=== PATIENT | female | born 1965 | race Caucasian/White ===

== ENCOUNTER 2017-04-30 07:32 | Inpatient (IN) | payer BC ==
[2017-04-30] VITALS (10 sets, daily range): BP systolic 93–131; BP diastolic 54–73
[~2017-04-30] VITALS: Ht 157.5 cm; Wt 80.5 kg
[~2017-04-30 07:32] MED LIST: AMITIZA24 MC1 PO; ATIVAN0.5 M1; DILAUDID2 MG; LAC PO; LEVAQUIN750 MG PO; MAC100 PO; PHEDML PO; RELISTOR150 MG PO; TYLENOL EXTRA500 M2; TYLENOL EXTRA500 M3; ZOF4
[2017-04-30 08:50] LABS: PLATELET COUNT 224 x10^3mcL (130-400)
[2017-04-30 08:55] LABS: CALCIUM 7.6 mg/dL (8.5-10.1); CARBON DIOXIDE 27.6 mmol/L (21-32); CHLORIDE SERUM 108 mmol/L (98-107); CREATININE SERUM 0.7 mg/dL (0.6-1.0); GFR1 > 60 mL/min; GLUCOSE SERUM 168 mg/dL (74-106); POTASSIUM SERUM 5.2 mmol/L (3.5-5.1); SODIUM SERUM 139 mmol/L (136-145)
[2017-04-30 09:07] LABS: ALKALINE PHOSPHATASE 285 U/L (46-116); ALT/SGPT 34 U/L (14-59); AMYLASE 48 U/L (25-115); AST/SGOT 60 U/L (15-37); BILIRUBIN TOTAL 0.5 mg/dL (0.20-1.00); LIPASE 164 IU/L (73-393); MAGNESIUM 2.1 mg/dL (1.8-2.4)
[2017-04-30 09:11] LABS: AMPHETAMINE QUAL UR NONE DETECTED (NEG <=1000)
[2017-04-30 09:12] LABS: ALBUMIN 1.6 g/dL (3.4-5.0); CHOLESTEROL 96 mg/dL (<200); HDL CHOLESTEROL 17 mg/dL (40-60); T4(THYROXINE) 3.2 ug/dL (4.7-13.3); TOTAL PROTEIN, SERUM 5.9 g/dL (6.4-8.2)
[2017-04-30 09:28] LABS: RED CELL DISTRIBUTION WIDTH 18.5 % (11.5-14.5)
[2017-04-30 09:32] LABS: UA SPECIFIC GRAVITY >=1.030 (1.005-1.035); microscopic required? YES; urine erythrocyte TRACE (NEGATIVE)
[2017-04-30 10:13] LABS: ATYPICAL LYMPH 1 %; BAND NEUTROPHIL 8 % (0-10); BASOPHIL 0 % (0-2); MONOCYTE 29 % (0-7); SEGMENTED NEUTROPHILS 42 % (37-75); rbc morphology (normal/abnorm) ABNORMAL (NORMAL)
[2017-04-30] MEDS ORDERED: COMPAZINE5 M1 PO (10:28)
[2017-04-30] MEDS ORDERED: ZOF4 PO (10:28)
[2017-04-30] MEDS ORDERED: LORAZEPAM0.5 MG PO (10:28)
[2017-04-30] MEDS ORDERED: GOOD SENSE OMEP20 MG PO (10:28)
[2017-04-30 12:24] LABS: FREE T4 0.72 ng/dL (0.76-1.46)
[2017-04-30 12:25] LABS: FREE THYROXINE INDEX 1.4 ug/dL (1.4-4.5); T4(THYROXINE) 3.5 ug/dL (4.7-13.3)
[2017-04-30 12:50] LABS: T3 TOTAL 0.21 ng/mL
[2017-05-01] VITALS (18 sets, daily range): BP systolic 91–119; BP diastolic 39–72
[2017-05-01 05:09] LABS: PLATELET COUNT 190 x10^3mcL (130-400)
[2017-05-01 05:14] LABS: BASOPHIL % 0 % (0-2); RED CELL DISTRIBUTION WIDTH 19.1 % (11.5-14.5)
[2017-05-01 05:34] LABS: CALCIUM 7.7 mg/dL (8.5-10.1); CARBON DIOXIDE 27.5 mmol/L (21-32); CHLORIDE SERUM 108 mmol/L (98-107); CREATININE SERUM 0.8 mg/dL (0.6-1.0); GFR1 > 60 mL/min; GLUCOSE SERUM 82 mg/dL (74-106); MAGNESIUM 1.8 mg/dL (1.8-2.4); PHOSPHOROUS 3.6 mg/dL (2.5-4.9); SODIUM SERUM 141 mmol/L (136-145)
[2017-05-02] VITALS (19 sets, daily range): BP systolic 80–146; BP diastolic 38–80
[2017-05-02 05:53] LABS: BASOPHIL % 0.2 % (0-2); PLATELET COUNT 214 x10^3mcL (130-400); RED CELL DISTRIBUTION WIDTH 19.3 % (11.5-14.5)
[2017-05-02 06:07] LABS: CALCIUM 7.3 mg/dL (8.5-10.1); CARBON DIOXIDE 25.4 mmol/L (21-32); CHLORIDE SERUM 107 mmol/L (98-107); CREATININE SERUM 0.8 mg/dL (0.6-1.0); GFR1 > 60 mL/min; GLUCOSE SERUM 94 mg/dL (74-106); MAGNESIUM 1.6 mg/dL (1.8-2.4); PHOSPHOROUS 3.8 mg/dL (2.5-4.9); POTASSIUM SERUM 4.1 mmol/L (3.5-5.1); SODIUM SERUM 141 mmol/L (136-145)
[2017-05-03] VITALS (18 sets, daily range): BP systolic 88–125; BP diastolic 54–68
[2017-05-03 05:34] LABS: BASOPHIL % 0.1 % (0-2); PLATELET COUNT 212 x10^3mcL (130-400)
[2017-05-03 05:37] LABS: RED CELL DISTRIBUTION WIDTH 19.3 % (11.5-14.5)
[2017-05-03 05:46] LABS: CALCIUM 7.6 mg/dL (8.5-10.1); CARBON DIOXIDE 23.9 mmol/L (21-32); CHLORIDE SERUM 105 mmol/L (98-107); CREATININE SERUM 0.7 mg/dL (0.6-1.0); GFR1 > 60 mL/min; GLUCOSE SERUM 174 mg/dL (74-106); MAGNESIUM 1.9 mg/dL (1.8-2.4); PHOSPHOROUS 3.9 mg/dL (2.5-4.9); POTASSIUM SERUM 3.3 mmol/L (3.5-5.1); SODIUM SERUM 140 mmol/L (136-145)
[2017-05-04] VITALS (17 sets, daily range): BP systolic 76–140; BP diastolic 49–71
[2017-05-04 05:37] LABS: BASOPHIL % 0.1 % (0-2)
[2017-05-04 06:02] LABS: CALCIUM 7.1 mg/dL (8.5-10.1); CARBON DIOXIDE 25.7 mmol/L (21-32); CHLORIDE SERUM 104 mmol/L (98-107); CREATININE SERUM 0.9 mg/dL (0.6-1.0); GFR1 > 60 mL/min; GLUCOSE SERUM 178 mg/dL (74-106); MAGNESIUM 1.7 mg/dL (1.8-2.4); PHOSPHOROUS 4.1 mg/dL (2.5-4.9); POTASSIUM SERUM 3.2 mmol/L (3.5-5.1); SODIUM SERUM 141 mmol/L (136-145)
[2017-05-04 06:16] LABS: RED CELL DISTRIBUTION WIDTH 18.9 % (11.5-14.5)
[2017-05-04 06:17] LABS: PLATELET COUNT 207 x10^3mcL (130-400)
[2017-05-05] VITALS (19 sets, daily range): BP systolic 84–125; BP diastolic 47–77; Ht 157.5 cm; Wt 80.5 kg
[2017-05-05 05:24] LABS: BASOPHIL % 0.4 % (0-2)
[2017-05-05 05:46] LABS: CALCIUM 7.3 mg/dL (8.5-10.1); CARBON DIOXIDE 27.2 mmol/L (21-32); CREATININE SERUM 1.1 mg/dL (0.6-1.0); MAGNESIUM 1.7 mg/dL (1.8-2.4); PHOSPHOROUS 3.7 mg/dL (2.5-4.9)
[2017-05-05 06:03] LABS: RED CELL DISTRIBUTION WIDTH 19.8 % (11.5-14.5)
[2017-05-05 06:04] LABS: PLATELET COUNT 215 x10^3mcL (130-400)
[2017-05-05 17:57] LABS: APPEARANCE FLUID HAZY; SOURCE FLUID THORACENTESIS
[2017-05-05 17:58] LABS: COLOR FLUID YELLOW
[2017-05-05 17:59] LABS: RBC FLUID 1257 /cumm; WBC FLUID 421 /cumm
[2017-05-05 18:24] LABS: LYMPHOCYTE FLUID 57 %; MONOCYTE FLUID 9 %
[2017-05-06] VITALS (13 sets, daily range): BP systolic 91–117; BP diastolic 52–67
[2017-05-06 05:12] LABS: BASOPHIL % 0.5 % (0-2); PLATELET COUNT 211 x10^3mcL (130-400)
[2017-05-06 05:36] LABS: CALCIUM 7.5 mg/dL (8.5-10.1); CARBON DIOXIDE 27.1 mmol/L (21-32); CHLORIDE SERUM 104 mmol/L (98-107); GFR1 > 60 mL/min; GLUCOSE SERUM 159 mg/dL (74-106); MAGNESIUM 1.5 mg/dL (1.8-2.4); PHOSPHOROUS 3.5 mg/dL (2.5-4.9); SODIUM SERUM 139 mmol/L (136-145)
[2017-05-06 05:38] LABS: RED CELL DISTRIBUTION WIDTH 19.7 % (11.5-14.5)
[2017-05-06 05:56] LABS: rbc morphology (normal/abnorm) ABNORMAL (NORMAL)
[2017-05-06] MEDS ORDERED: PHE25I IV (16:10)
[2017-05-06] MEDS ORDERED: BEN25I IV (16:10)
[2017-05-06] MEDS ORDERED: ZOS2PM IV ×2 (16:11→16:43)
[2017-05-06] MEDS ORDERED: XOP1.25 HHN (16:12)
[2017-05-06] MEDS ORDERED: IPRATROPIUM BROM3 M2 HHN (16:12)
[2017-05-06] MEDS ORDERED: XARELTO15 M1 PO (16:13)
[2017-05-06] MEDS ORDERED: TYL650L PO (16:14)
[2017-05-06] MEDS ORDERED: DEXPF IV (16:14)
[2017-05-06] MEDS ORDERED: BG FS (16:14)
[2017-05-06] MEDS ORDERED: VER5I IV (16:15)
[2017-05-06] MEDS ORDERED: L40I IV (16:16)
[2017-05-06] MEDS ORDERED: ZOFI IV (16:17)
[2017-05-06] MEDS ORDERED: HUMULIN R100 U/1 M1 SC (16:17)
[2017-05-06] MEDS ORDERED: PULMICORT0.25 MG/2 IH (16:17)
[2017-05-06] MEDS ORDERED: TPN PER PHARMACY MC (16:18)
[2017-05-06] MEDS ORDERED: BENC TOP (16:18)
[2017-05-06] MEDS ORDERED: ZOF4 (17:23)
== END 2017-05-06 18:15 | disposition short-term general hospital (02) | DRG 207 ==
LOC: ED 07:32 → IC 11:00
PROVIDERS: Emergency Medicine; Family Medicine; Student in an Organized Health Care Education/Training Program
PROC: 5A1955Z Respiratory Ventilation, Greater than 96 Consecutive Hours (ICD-10-PCS; principal; 2017-04-30)
PROC: 0BH17EZ Insertion of Endotracheal Airway into Trachea, Via Natural or Artificial Opening (ICD-10-PCS; 2017-04-30)
PROC: 0W993ZZ Drainage of Right Pleural Cavity, Percutaneous Approach (ICD-10-PCS; 2017-05-05)
DX: J96.01 Acute respiratory failure with hypoxia (principal); I26.99 Other pulmonary embolism without acute cor pulmonale; N17.0 Acute kidney failure with tubular necrosis; E43 Unspecified severe protein-calorie malnutrition; J69.0 Pneumonitis due to inhalation of food and vomit; C56.9 Malignant neoplasm of unspecified ovary; C78.7 Secondary malignant neoplasm of liver and intrahepatic bile duct; Z51.5 Encounter for palliative care; E86.0 Dehydration; E87.6 Hypokalemia; E87.5 Hyperkalemia; K59.00 Constipation, unspecified; E02 Subclinical iodine-deficiency hypothyroidism; D64.9 Anemia, unspecified; D72.819 Decreased white blood cell count, unspecified; F41.9 Anxiety disorder, unspecified; Z85.43 Personal history of malignant neoplasm of ovary; Z92.21 Personal history of antineoplastic chemotherapy; Z90.710 Acquired absence of both cervix and uterus; Z82.49 Family history of ischemic heart disease and other diseases of the circulatory system; Z83.3 Family history of diabetes mellitus; Z88.5 Allergy status to narcotic agent; Z68.35 Body mass index [BMI] 35.0-35.9, adult
CPT/HCPCS: 31500; 31645; 32555; 36556; 36600; 82962; 83880; 84439; 90658; A4628; C1729; G0480; J0461; J0610; J1200; J1642; J1644; J1940; J2060; J2250; J2270; J2405; J2543; J2550; J2930; J3010; J3475; J3480; J3490; J7030; J7131; J7620; J7633; Q0092; Q9967